=== PATIENT | female | born 2005 | race Caucasian/White ===

== ENCOUNTER 2024-09-03 18:59 | Emergency (ER) | payer MEDICAID ==
[~2024-09-03] VITALS: Ht 154.9 cm; Wt 60.0 kg
[2024-09-03 19:08] VITALS: O2SAT 99
[2024-09-03] MEDS: IBUPROFEN 600MG TABLET PO STA (21:29)
[2024-09-03] MEDS ORDERED: NAPR-681 MT (22:58)
[2024-09-04 00:02] VITALS: BP 106/52; PULSE 86; RESP 16; TEMP 37.00296; O2SAT 100
== END 2024-09-04 00:11 | disposition home or self-care (01) ==
LOC: ER 19:48
DX: M54.50 Low back pain, unspecified (principal); R07.89 Other chest pain; I10 Essential (primary) hypertension; V89.2XXA Person injured in unspecified motor-vehicle accident, traffic, initial encounter; Y93.89 Activity, other specified; Y92.488 Other paved roadways as the place of occurrence of the external cause; Y99.8 Other external cause status
CPT/HCPCS: 71045; 72100; 81025; 99284